=== PATIENT | female | born 1970 | race Caucasian/White ===

== ENCOUNTER 2016-06-15 10:12 | Emergency (ER) | payer OTHER ==
[2016-06-15 10:34] VITALS: BP 168/92; PULSE 70; RESP 16; TEMP 97.5; O2SAT 100
--- NOTE | 2016-06-15 11:32 | CT ---
CT Brain (Without Contrast) 1105 Hours History: Right facial numbness. Comparison: None. Technique: Axial computed tomographic images of the brain without contrast. Dose reduction technique s were utilized. Findings: Ventricles, cisterns, and sulci are normal without atrophy, hydrocephalus, midline shift/h erniation, or epidural/subdural hematomas. No acute intraparenchymal hemorrhage, definite infarct, or mass effect. Bone windows demonstrate no displaced fractures. Paranasal sinuses and mastoid air cell s are clear. Impressions 1. Normal CT brain without contrast. 2. Consider MRI of the brain without and with contrast enhancement, if there is continued clinical co ncern. Findings and recommendations discussed with Emergency Department physician, Dr. Oni Cazares at 1 125 hours, today, June 15, 2016. Final report concurs with initial preliminary interpretation.
--- NOTE | 2016-06-15 11:37 | UCPHY ---
H & P Patient Type: Established Chief Complaint Nursing Narrative: right sided numbness today . Has had some right arm numbness and spasms x weeks. Has not seen anyone for this . No slurred speech. No Arm drift. No facial asymmetry Time Seen by Provider: 06/15/16 10:48 HPI/ROS: This patient has right-sided facial numbness versus paresthesias that started this morning. She reports feeling of intermittent right handed twitching associated with this and wonders if she may be having extrapyramidal symptoms from her Geodon, but admits that she is worried about MS. 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 She has no other focal neuro symptoms at this time. She notes no exacerbating or alleviating factors for symptoms ROS: No fevers or chills. She has no headache at this time. She reports no chest pain or heart palpitations. No lightheadedness. No cognitive difficulties in terms of her thinking. She reports no other complaints and 10 point ROS is otherwise negative Source: Patient Exam Limitations: No limitations - Personal History LMP (Females 10-55): Now - Medical/Surgical History PMH: Schizoaffective disorder Hypothyroidism Hx Asthma: No Hx Chronic Respiratory Disease: No Hx Diabetes: No Hx Cardiac Disease: No Hx Renal Disease: No Hx Cirrhosis: No Hx Alcoholism: No Hx HIV/AIDS: No Hx Splenectomy or Spleen Trauma: No Other PMH: Schizoaffective disorder. Hypo thyroid. acne. PCP Dr Bolaños. [facility]. 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 - Physical Exam Exam: Physical exam: Vital signs are normal General: Patient is in no acute distress. HEENT: Is no external evidence of trauma on exam. Eyes: Pupils are equal and reactive to light. Extraocular motions are intact. Optic fundi: Clear with no papilledema or hemorrhage. Nose atraumatic. Ears: Clear bilaterally with no hemotympanum. Oropharynx: No dental trauma or malocclusion. No intraoral lacerations. Neck: Trachea is midline with no stridor. The patient has no midline neck tenderness and retains a full range of motion without increase in pain. Lungs: Clear to auscultation bilaterally Cardiac: Regular rate and rhythm no murmur gallop or rub. Chest: Nontender. Abdomen: Soft nontender no organomegaly Back: Nontender Extremities: Atraumatic Neuro: GCS of 15. The patient reports decreased light touch sensation on the right face. However cranial nerves 2-12 are otherwise intact. There is no facial asymmetry Cerebellar exam is normal as judged by symmetric rapid hand movements bilaterally. No pronator drift. No sensory or motor deficits are appreciated. Psychiatric: Patient is mildly anxious but otherwise has a normal psychiatric exam. Initial differential diagnosis: TIA, intracranial lesion, intracranial bleed, MS, anxiety with somatization, metabolic abnormality, medication side effect Constitutional: Initial Vital Signs Temperature (C) 36.4 C 06/15/16 10:27 Heart Rate 70 06/15/16 10:27 Respiratory Rate 16 06/15/16 10:27 Blood Pressure 168/92 H 06/15/16 10:27 O2 Sat (%) 100 06/15/16 10:27 O2 Delivery Mode Room Air Allergies/Adverse Reactions: No Known Allergies Allergy (Verified 06/15/16 10:34) Home Medications: Medication Instructions Recorded Levothyroxine [Synthroid 50 mcg 50 mcg PO DAILY06 10/19/12 (RX)] Ziprasidone HCl [Geodon 20MG (RX)] 20 mg PO BID 10/19/12 buPROPion SR [Wellbutrin 150mg SR 150 mg PO DAILY 10/19/12 (RX)] Liothyronine Sodium 02/03/15 ACCUTANE 06/15/16 Medical Decision Making - Diagnostics Imaging: CT brain no contrast-normal per Dr. Jenkins, radiologist. I am unable to review this film at this time due to a malfunction in the PAC system ED Course/Re-evaluation: Counseled patient regarding her normal head CT. Apparently our tech came to drop her blood when she was in CT scans there is a delay an getting her blood to the lab. She remained stable here with no further neuro symptoms. I reviewed her labs-normal CBC and comp metabolic panel. Encouraged her to follow up with Neurology for any ongoing symptoms. Discussion: Given lack of any other suggestive findings for TIA I do not think this patient warrants admission at this time but should have close outpatient follow-up. I counseled regarding this - Data Points Laboratory Results: Laboratory Results 06/15/16 11:52 06/15/16 11:52 06/15/16 11:52 WBC 6.61 10^3/uL (3.80-9.50) RBC 4.78 10^6/uL (4.18-5.33) Hgb 15.3 g/dL (12.6-16.3) Hct 44.2 % (38.0-47.0) MCV 92.5 fL (81.5-99.8) MCH 32.0 pg (27.9-34.1) MCHC 34.6 g/dL (32.4-36.7) RDW 12.1 % (11.5-15.2) Plt Count 325 10^3/uL (150-400) MPV 10.3 fL (8.7-11.7) Neut % (Auto) 72.0 % (39.3-74.2) Lymph % (Auto) 17.9 % (15.0-45.0) [place] % (Auto) 7.7 % (4.5-13.0) Eos % (Auto) 1.4 % (0.6-7.6) Baso % (Auto) 0.8 % (0.3-1.7) Nucleat RBC Rel Count 0.0 % (0.0-0.2) Absolute Neuts (auto) 4.77 10^3/uL (1.70-6.50) Absolute Lymphs (auto) 1.18 10^3/uL (1.00-3.00) Absolute Monos (auto) 0.51 10^3/uL (0.30-0.80) Absolute Eos (auto) 0.09 10^3/uL (0.03-0.40) Absolute Basos (auto) 0.05 10^3/uL (0.02-0.10) Absolute Nucleated RBC 0.00 10^3/uL (0-0.01) Immature Gran % 0.2 % (0.0-1.1) Immature Gran # 0.01 10^3/uL (0.00-0.10) Sodium 142 mEq/L (134-144) Potassium 4.0 mEq/L (3.5-5.2) Chloride 105 mEq/L (97-110) Carbon Dioxide 24 mEq/l (22-31) Anion Gap 13 mEq/L (8-16) BUN 6 L mg/dL (7-23) Creatinine 0.7 mg/dL (0.6-1.0) Estimated GFR > 60 Glucose 89 mg/dL (70-100) Calcium 9.7 mg/dL (8.5-10.4) Total Bilirubin 0.5 mg/dL (0.1-1.4) AST 27 IU/L (14-46) ALT 30 IU/L (9-52) Alkaline Phosphatase 46 IU/L (38-126) Total Protein 7.2 g/dL (6.3-8.2) Albumin 4.3 g/dL (3.5-5.0) Departure - Departure Disposition: Home, Routine, Self-Care Clinical Impression: Right facial numbness Condition: Good Instructions: Paresthesia (ED) Additional Instructions: Diagnosis: Right facial numbness Your CT scan is normal today. Plan: Continue current medications Call Dr. Haas-neurologist to arrange follow-up for further evaluation Go to the emergency department for any significant worsening despite the treatment plan Referrals: Arash Bolaños MD [Primary Care Provider] - As per Instructions Randell Haas DO [Medical Doctor] - As per Instructions - PQRS PQRS Measurement: NA
[2016-06-15 11:57] LABS: % IMMATURE GRANULYOCYTES 0.2 % (0.0-1.1); ABSOLUTE IMMATURE GRANULOCYTES 0.01 10^3/uL (0.00-0.10); ADD DIFF? NO; ADD MORPH? NO; ADD SCAN? NO; ATYPICAL LYMPHOCYTE FLAG 0 (0-99); FRAGMENT RBC FLAG 0 (0-99); HEMATOCRIT 44.2 % (38.0-47.0); HEMOGLOBIN 15.3 g/dL (12.6-16.3); LEFT SHIFT FLG 0 (0-99); LIPEMIA HEMOLYSIS FLAG 90 (0-99); MEAN CELL HEMOGLOBIN CONCENTR. 34.6 g/dL (32.4-36.7); MEAN CELL VOLUME 92.5 fL (81.5-99.8); MEAN PLATELET VOLUME 10.3 fL (8.7-11.7); PLATELET CLUMPS FLAG 10 (0-99); PLATELET COUNT 325 10^3/uL (150-400); RED BLOOD CELL COUNT 4.78 10^6/uL (4.18-5.33); RED CELL DISTRIBUTION WIDTH 12.1 % (11.5-15.2)
[2016-06-15 12:12] LABS: ALANINE AMINOTRANSFERASE 30 IU/L (9-52); ALBUMIN 4.3 g/dL (3.5-5.0); ALKALINE PHOSPHATASE 46 IU/L (38-126); ANION GAP 13 mEq/L (8-16); ASPARTATE AMINOTRANSFERASE 27 IU/L (14-46); BILIRUBIN,TOTAL 0.5 mg/dL (0.1-1.4); CALCIUM 9.7 mg/dL (8.5-10.4); CARBON DIOXIDE 24 mEq/l (22-31); CHLORIDE 105 mEq/L (97-110); CREATININE 0.7 mg/dL (0.6-1.0); GLOMERULAR FILTRATION RATE > 60; GLUCOSE 89 mg/dL (70-100); SODIUM 142 mEq/L (134-144); TOTAL PROTEIN 7.2 g/dL (6.3-8.2)
== END 2016-06-15 12:30 | disposition home or self-care (01) ==
LOC: CED 10:12
DX: R20.2 Paresthesia of skin (principal); F25.9 Schizoaffective disorder, unspecified; E03.9 Hypothyroidism, unspecified; Z96.641 Presence of right artificial hip joint; Z87.891 Personal history of nicotine dependence
CPT/HCPCS: 70450-PO; 80053-PO; 85025-PO; 99215-PO; G0463-PO

== ENCOUNTER → 2016-07-27 | Outpatient (CLI) | payer OTHER ==
[~2016-07-27] MED LIST: GADOBUTROL 10 ML VIAL IVP ONE
== END ==
LOC: FIMAGING 19:26
PROVIDERS: ATTEND Psychiatry & Neurology Neurology
DX: R20.0 Anesthesia of skin (principal); R53.1 Weakness
CPT/HCPCS: A9585

== ENCOUNTER 2017-07-15 23:16 | Emergency (ER) | payer OTHER ==
--- NOTE | 2017-07-15 23:24 | EDPHY ---
H & P Stated Complaint: pt says she's pretty certain R hip is dislocated HPI/ROS: HPI CHIEF COMPLAINT: Right hip dislocation while having intercourse HISTORY OF PRESENT ILLNESS: This patient is a 47-year-old female she has significant past medical history for schizoaffective disorder, thyroid disease, presents emergency room with right hip pain. Patient states she was having intercourse and most likely dislocated the right hip. She states she has had previous 2 hip dislocations on the right. She feels like her hip is out. No significant pain. She had a previous right hip replacement. Denies any other areas of injury. Past Medical History: Thyroid disease, schizoaffective disorder Past Surgical History: No recent surgical history Social History: Denies drugs alcohol tobacco. Family History: Noncontributory ROS REVIEW OF SYSTEMS: A comprehensive 10 point review of systems is otherwise negative aside from elements mentioned in the history of present illness. Exam Constitutional appears well nontoxic triage nursing summary reviewed, vital signs reviewed, awake/alert. Eyes normal conjunctivae and sclera, EOMI, PERRLA. HENT normal inspection, atraumatic, moist mucus membranes, no epistaxis, neck supple/ no meningismus, no raccoon eyes. Respiratory clear to auscultation bilaterally, normal breath sounds, no respiratory distress, no wheezing. Cardiovascular rate normal, regular rhythm, no murmur, no edema, distal pulses normal. Gastrointestinal soft, non-tender, no rebound, no guarding, normal bowel sounds, no distension, no pulsatile mass. Genitourinary no CVA tenderness. Musculoskeletal right lower extremity: Neurovascular intact good distal pulse. Good cap refill. Limited range of motion to the right leg due to right lateral hip pain. no midline vertebral tenderness, full range of motion, no calf swelling, no tenderness of extremities, no meningismus, good pulses, neurovascularly intact. Skin pink, warm, & dry, no rash, skin atraumatic. Neurologic awake, alert and oriented x 3, AAOx3, moves all 4 extremities equally, motor intact, sensory intact, CN II-XII intact, normal cerebellar, normal vision, normal speech. Psychiatric normal mood/affect. Heme/Lymph/Immune no lymphadenopathy. Differential Diagnosis: Includes but is not limited to in a particular order right hip dislocation, right hip fracture posterior dislocation Medical Decision Making: Plan for this patient x-ray right hip. If hip is L will try to relocate it may need conscious sedation. Re-evaluation: X-ray of the right hip reviewed. This shows a posterior right hip dislocation of the prosthetic hip. 2338: This patient be moved to ER room 17 to ER room for conscious sedation. I have ordered 20 mg of propofol. Procedure: Procedural sedation. Indication: Right hip dislocation, posterior. A pre-sedation evaluation was completed on the patient just prior to the procedure. Patient is an appropriate candidate for procedural sedation with ASA class 1 E. The risks of the sedation were discussed including but not limited to dysrhythmia, need for airway intervention or general anesthesia, disability, ; and verbal consent obtained. A timeout was observed and patient's identity confirmed. The patient was sedated with 100mg propofol. The patient was monitored with continuous pulse oximetry, capnography, and court monitor. There were no complications and no significant hypoxemia. I remained at the bedside for the sedation. The total time I spent in the procedural sedation was 25 minutes. 1214: Unfortunately was unsuccessful post reduction. I was unable to reduce the hip into the joint. 1215: I have consult Dr. Bello norman with Orthopedics for further evaluation and treatment of this. 1221AM: Dr. Bello Norman, with Orthopedics saw and evaluated the patient. We will able to repeat her conscious sedation and able to relocate her hip. Procedure: Procedural sedation. Indication: Right posterior hip dislocation. A pre-sedation evaluation was completed on the patient just prior to the procedure. Patient is an appropriate candidate for procedural sedation with ASA class 1 E. The risks of the sedation were discussed including but not limited to dysrhythmia, need for airway intervention or general anesthesia, disability, ; and verbal consent obtained. A timeout was observed and patient's identity confirmed. The patient was sedated with 70MG propofol. The patient was monitored with continuous pulse oximetry, capnography, and court monitor. There were no complications and no significant hypoxemia. I remained at the bedside for the sedation. The total time I spent in the procedural sedation was 15. 1226AM: Re-examination patient resting comfortably. She states she feels much better. She is able to fully range her right hip and right leg. She is neurovascularly intact post reduction. Post reduction x-ray is pending at this time. Will allow her to go home I do recommend she follows up with her orthopedic surgeon. She understands return emergency room if develops worsening symptoms questions or concerns. Post reduction x-ray the right hip shows good anatomic alignment of the artificial hip. No evidence of fracture. Source: Patient - Medical/Surgical History Hx Asthma: No Hx Chronic Respiratory Disease: No Hx Diabetes: No Hx Cardiac Disease: No Hx Renal Disease: No Hx Cirrhosis: No Hx Alcoholism: No Hx HIV/AIDS: No Hx Splenectomy or Spleen Trauma: No Other PMH: Schizoaffective disorder. Hypo thyroid. acne. Surg R Hip replacement /D+C - Social History Smoking Status: Former smoker Constitutional: Initial Vital Signs Temperature (C) 36.5 C 07/15/17 23:20 Heart Rate 92 07/15/17 23:20 Respiratory Rate 16 07/15/17 23:20 Blood Pressure 149/101 H 07/15/17 23:20 O2 Sat (%) 100 07/15/17 23:20 O2 Delivery Mode Room Air Allergies/Adverse Reactions: No Known Allergies Allergy (Verified 07/15/17 23:24) Home Medications: Medication Instructions Recorded Levothyroxine [Synthroid 50 mcg 50 mcg PO DAILY06 10/19/12 (RX)] Ziprasidone HCl [Geodon 20MG (RX)] 20 mg PO BID 10/19/12 buPROPion SR [Wellbutrin 150mg SR 150 mg PO DAILY 10/19/12 (RX)] Liothyronine Sodium 02/03/15 Medical Decision Making - Diagnostics Imaging Results: Imaging Impressions Hip X-Ray 07/15/17 23:24 Impression: Dislocated right hip arthroplasty. - Data Points Medications Given: Discontinued Medications Fentanyl (Sublimaze) 50 mcg IVP EDNOW ONE Stop: 07/15/17 23:45 Last Admin: 07/15/17 23:57 Dose: 50 mcg Sodium Chloride (Ns) 1,000 mls @ 0 mls/hr IV ONCE ONE PRN Reason: Wide Open Stop: 07/15/17 23:39 Last Admin: 07/16/17 00:04 Dose: 1,000 mls Propofol (Diprivan) 200 mg IVP EDNOW ONE Stop: 07/15/17 23:39 Last Admin: 07/16/17 00:29 Dose: 200 mg Propofol (Diprivan) 80 mg IVP EDNOW ONE Stop: 07/16/17 00:29 Last Admin: 07/16/17 00:05 Dose: 80 mg Departure - Departure Disposition: Home, Routine, Self-Care Clinical Impression: Hip dislocation, right Qualifiers: Encounter type: initial encounter Qualified Code(s): S73.004A - Unspecified dislocation of right hip, initial encounter Condition: Fair Instructions: Hip Dislocation (ED) Additional Instructions: 1. Return if you have worsening symptoms questions or concerns. 2. Follow up with your orthopedic surgeon. Referrals: Patient,NotPresent [Primary Care Provider] - As per Instructions
[2017-07-15] MEDS ORDERED: PROPOFOL 200 MG/20 ML VIAL IVP ONE (23:38)
[2017-07-15] MEDS ORDERED: NS 1,000 ML IV ONE (23:38)
[2017-07-15] MEDS ORDERED: fentaNYL 100 MCG/2 ML INJ IVP ONE (23:44)
[2017-07-16] MEDS ORDERED: PROPOFOL 200 MG/20 ML VIAL IVP ONE (00:28)
--- NOTE | 2017-07-16 00:56 | PDCONSULT ---
Stamp Presser Note: Orthopaedic Consult DOS: 07/16/2017 CC: Right hip dislocation HPI: Called by ED (Lorna) to evaluate Ms Baldwin in the ED for her right hip. 47y F h/o Right PRIYANK for dysplasia who p/w dislocation during intercourse. H/o prior dislocations x2 in 2014, at least one of which required OR reduction under anesthesia. Multiple attempts at reduction by ED today, but we decided to try one more time in an attempt to avoid a trip to the OR. PMHx: Hip dysplasia on Right side leading to decision to undergo R PRIYANK PSHx: Right PRIYANK. 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 Nonsmoker ROS: was otherwise at baseline across all systems reviewed except MSK per HPI PE: AxOx4. Shivering. RLE: internally rotated and shorted Right leg. TTP RIght hip with painful log roll. SILT S/S/SP/DP/T. + EHL/FHL/TA/GS. Skin intact. 2+ DP Imaging: Radiographs of Right hip demonstrated dislocation of Right PRIYANK. No signs of loosening of cup nor stem. A/P: 47y F w dislocated R PRIYANK - The ED administered another round of sedation. With ample assistance and counterpressure on ASIS, we were able to reduce the hip. - Post reduction radiographs showed the hip was reduced in the cup. No signs of loosening. Post reduction RLE was NVI. Pt able to flex hip on her own. - She will go back home and start using her hip abduction brace again. - We provided instructions on posterior hip precautions again (no flexion past 90 degrees, no internal rotation of the leg, no adduction across the midline). - She will followup with Dr. Sandoval Denton at [facility] as her original surgeon has retired and she needs ongoing care for her hip.
[2017-07-16 01:15] VITALS: BP 125/89; PULSE 87; RESP 18; TEMP 98.2; O2SAT 97
== END 2017-07-16 01:22 | disposition home or self-care (01) ==
PROC: 0SS9XZZ Reposition Right Hip Joint, External Approach (ICD-10-PCS; principal; 2017-07-15)
DX: T84.020A Dislocation of internal right hip prosthesis, initial encounter (principal); Z87.891 Personal history of nicotine dependence; X58.XXXA Exposure to other specified factors, initial encounter; Y82.8 Other medical devices associated with adverse incidents; Y93.89 Activity, other specified
CPT/HCPCS: 96374

== ENCOUNTER → 2018-11-29 | Outpatient (CLI) | payer OTHER | LOC: FIMAGING 07:47 ==